=== PATIENT | female | born 1990 | race Caucasian/White ===

== ENCOUNTER 2018-03-15 14:26 | Emergency (ER) | payer MEDICAID ==
[~2018-03-15] VITALS: Ht 160 cm; Wt 67.0 kg
[2018-03-15 14:30] VITALS: BP 133/68
[2018-03-15] MEDS ORDERED: KETOROLAC 30 MG/1 ML IM ONE (15:00)
[2018-03-15] MEDS ORDERED: METHOCARBAMOL 750 MG TABLET PO ONE (15:00)
[2018-03-15] MEDS ORDERED: KETOROLAC 30 MG/1 ML ONE (15:24)
[2018-03-15] MEDS ORDERED: METHOCARBAMOL 750 MG TABLET ONE (15:24)
== END 2018-03-15 15:41 | disposition home or self-care (01) ==
LOC: ED 15:30
DX: M54.6 Pain in thoracic spine (principal)
CPT/HCPCS: 72072; 96372; 99284; J1885

== ENCOUNTER 2018-12-03 19:39 | Emergency (ER) | payer MEDICAID ==
[~2018-12-03] VITALS: Ht 160 cm; Wt 60.4 kg
--- NOTE | 2018-12-03 21:07 | NUR ---
PT REPORTS CHEST PAIN AND EPIGASTRIC ABD PAIN SINCE 1500. NO ACUTE DISTRESS NOTED. CALL LIGHT IN PLACE. WILL CONTINUE TO MONITOR.
[2018-12-03 21:29] LABS: BASOPHILS # (AUTO) 0.03 x10^3/uL (0-0.1); BASOPHILS % (AUTO) 0 % (0-1); EOSINOPHILS # (AUTO) 0.05 x10^3/uL (0-0.4); EOSINOPHILS % (AUTO) 0 % (1-7); LYMPHOCYTES % (AUTO) 24 % (22-44); MD NO; MEAN CORPUSCULAR HEMOGLOBIN 31.5 pg (27.0-34.8); MEAN CORPUSCULAR HGB CONC 33.3 g/dL (32.4-35.8); MEAN CORPUSCULAR VOLUME 94.7 fL (80-100); MEAN PLATELET VOLUME 7.5 fL (7.4-10.4); MONOCYTES % (AUTO) 5 % (2-9); NEUTROPHILS # (AUTO) 7.69 x10^3/uL (1.8-6.8); NEUTROPHILS % (AUTO) 70 % (42-75); PLATELET COUNT 318 x10^3/uL (130-400); RED BLOOD COUNT 4.39 x10^6/uL (3.82-5.3); RED CELL DISTRIBUTION WIDTH 12.8 % (9.6-15.2)
[2018-12-03 21:39] LABS: ALANINE AMINOTRANSFERASE 18 U/L (12-78); ALBUMIN 3.8 g/dL (3.4-5.0); ANION GAP 7 mmol/L (5-15); CALCIUM 8.7 mg/dL (8.5-10.1); CHLORIDE 107 mmol/L (98-107); CREATININE 0.77 mg/dL (0.55-1.02)
[2018-12-03 21:44] LABS: ALKALINE PHOSPHATASE 75 U/L (45-117); BILIRUBIN,TOTAL 0.4 mg/dL (0.2-1.0); TOTAL PROTEIN 7.1 g/dL (6.4-8.2); TROPONIN I < 0.015 ng/mL (0.000-0.045)
--- NOTE | 2018-12-03 22:09 | NUR ---
PT RESTING IN ROOM. NO ACUTE DISTRESS NOTED. CARIDAC MONITOR ON. NSR NOTED. CALL LIGHT IN PLACE. WILL CONTINUE TO MONITOR.
[2018-12-03 22:45] LABS: MICROSCOPIC NOT IND
[2018-12-03 22:52] LABS: CULTURE INDICATED? NO
[2018-12-03 23:14] VITALS: BP 103/59
== END 2018-12-03 23:16 | disposition home or self-care (01) ==
LOC: ED 22:50
DX: R07.89 Other chest pain (principal); R10.13 Epigastric pain; M54.9 Dorsalgia, unspecified
CPT/HCPCS: 36415; 71045; 76700; 80053; 81003; 83690; 84484; 84703; 85025; 93005; 99284